=== PATIENT | female | born 2000 | race Two or more races ===

== ENCOUNTER → 2025-01-02 | Outpatient (CLI) | payer MEDICAID, SELFPAY ==
--- NOTE | 2025-01-02 08:24 | XR_ITS ---
Examination: Thoracic spine 3 views TECHNIQUE: AP lateral coned lateral upper dorsal spine 3 views Exam date and time: January 02, 2025 0904 hours INDICATIONS: Upper back pain beginning 4 months ago. FINDINGS: Midthoracic dextroscoliosis 4 degrees No thoracic fracture No thoracic disc narrowing Intact pedicles IMPRESSION: Midthoracic dextroscoliosis 4 degrees
--- NOTE | 2025-01-02 08:24 | XR_ITS ---
Examination: Lumbar spine 3 views TECHNIQUE: AP lateral coned lateral lower lumbar spine 3 views Exam date and time: January 02, 2025 0910 hours INDICATIONS: Low back pain beginning 4 months ago. FINDINGS: Spina bifida S1 No lumbar fracture No lumbar disc narrowing No spondylolisthesis IMPRESSION: No lumbar fracture or arthritic change
== END | disposition home or self-care (01) ==
PROVIDERS: PCP Family Medicine; Referring Provider Family Medicine; Visit Provider Family Medicine
DX: M41.84 Other forms of scoliosis, thoracic region (principal); M54.50 Low back pain, unspecified
CPT/HCPCS: 72070; 72100